=== PATIENT | female | born 1970 | race Caucasian/White ===

== ENCOUNTER 2020-02-15 11:16 | Emergency (ER) | payer SELFPAY ==
--- NOTE | 2020-02-15 12:15 | EDPHYS ---
Physician Documentation [facility] Name: Ladonna Burrows Age: 50 yrs Sex: Female : 1970 Arrival Date: 02/15/2020 Time: 11:18 Bed 13 Private MD: ED Physician Jose Salas HPI: 02/14 12:08 This 50 yrs old Female presents to ER via Ambulatory with complaints of payam Laceration to Finger. 12:08 The patient or guardian reports a laceration, 1.5 cm(s). The complaints affect the PIP payam of right index finger. Context: The problem was sustained at home, resulted from laceration. Onset: The symptoms/episode began/occurred just prior to arrival. Modifying factors: The symptoms are alleviated by nothing, the symptoms are aggravated by nothing. Associated signs and symptoms: The patient has no apparent associated signs or symptoms. Severity of symptoms: At their worst the symptoms were mild, in the emergency department the symptoms are unchanged. The patient has not experienced similar symptoms in the past. 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 - Social history:: Smoking status: . - Family history:: not pertinent. ROS: 12:08 Constitutional: Negative for fever, chills, and weight loss, Eyes: Negative for injury, payam pain, redness, and discharge, ENT: Negative for injury, pain, and discharge, Neck: Negative for injury, pain, and swelling, Cardiovascular: Negative for chest pain, palpitations, and edema, Respiratory: Negative for shortness of breath, cough, wheezing, and pleuritic chest pain, Abdomen/GI: Negative for abdominal pain, nausea, vomiting, diarrhea, and constipation, Back: Negative for injury and pain, : Negative for injury, bleeding, discharge, and swelling, Skin: Negative for injury, rash, and discoloration, Neuro: Negative for headache, weakness, numbness, tingling, and seizure, Psych: Negative for depression, anxiety, suicide ideation, homicidal ideation, and hallucinations, Allergy/Immunology: Negative for hives, rash, and allergies, Endocrine: Negative for neck swelling, polydipsia, polyuria, polyphagia, and marked weight changes. 12:08 MS/extremity: Positive for laceration, tenderness, of the dorsal aspect of middle phalanx of right index finger. Exam: 12:08 Constitutional: This is a well developed, well nourished patient who is awake, alert, payam and in no acute distress. Head/Face: Normocephalic, atraumatic. Eyes: Pupils equal round and reactive to light, extra-ocular motions intact. Lids and lashes normal. Conjunctiva and sclera are non-icteric and not injected. Cornea within normal limits. Periorbital areas with no swelling, redness, or edema. ENT: Nares patent. No nasal discharge, no septal abnormalities noted. Tympanic membranes are normal and external auditory canals are clear. Oropharynx with no redness, swelling, or masses, exudates, or evidence of obstruction, uvula midline. Mucous membranes moist. Neck: Trachea midline, no thyromegaly or masses palpated, and no cervical lymphadenopathy. Supple, full range of motion without nuchal rigidity, or vertebral point tenderness. No Meningismus. Chest/axilla: Normal chest wall appearance and motion. Nontender with no deformity. No lesions are appreciated. Cardiovascular: Regular rate and rhythm with a normal S1 and S2. No gallops, murmurs, or rubs. Normal PMI, no JVD. No pulse deficits. Respiratory: Lungs have equal breath sounds bilaterally, clear to auscultation and percussion. No rales, rhonchi or wheezes noted. No increased work of breathing, no retractions or nasal flaring. Abdomen/GI: Soft, non-tender, with normal bowel sounds. No distension or tympany. No guarding or rebound. No evidence of tenderness throughout. Back: No spinal tenderness. No costovertebral tenderness. Full range of motion. Skin: Warm, dry with normal turgor. Normal color with no rashes, no lesions, and no evidence of cellulitis. Neuro: Awake and alert, GCS 15, oriented to person, place, time, and situation. Cranial nerves II-XII grossly intact. Motor strength 5/5 in all extremities. Sensory grossly intact. Cerebellar exam normal. Normal gait. Psych: Awake, alert, with orientation to person, place and time. Behavior, mood, and affect are within normal limits. 12:08 Musculoskeletal/extremity: ROM: intact in all extremities, full active range of motion, full passive range of motion, Circulation is intact in all extremities. the dorsal aspect of middle phalanx of right index finger Compartment Syndrome exam of affected extremity: is normal. DVT Exam: no swelling, negative Homans' sign noted on exam, no appreciated bluish discoloration, no erythema, no increased warmth, pain, tenderness. Vital Signs: 11:27 BP 98 / 80; Pulse 87; Resp 16; Temp 97.6; Pulse Ox 97% ; Weight 81.65 kg; Height 5 ft. iw 1 in. (154.94 cm); Pain 7/10; 11:27 Body Mass Index 34.01 (81.65 kg, 154.94 cm) iw Laceration: 12:12 Wound Repair of 1.5cm ( 0.6in ) subcutaneous laceration to dorsal aspect of middle payam phalanx of right index finger. Irregularly shaped.. Skin/tissue flap noted.. Distal neuro/vascular/tendon intact. Anesthesia: Local anesthetic administered with 3 mls of 1% lidocaine w/ Epi. Wound prep: Moderate cleansing by me. Skin closed with 3 5-0 Prolene using interrupted sutures and sterile technique. Dressed with Neosporin. Patient tolerated well. MDM: 11:28 Patient medically screened. [facility] 12:11 Differential diagnosis: open fracture, contusion. Data reviewed: vital signs, nurses payam notes. Data interpreted: lapidarist: rate is 87 beats/min, rhythm is regular, Pulse oximetry: on room air is 97 %. Counseling: I had a detailed discussion with the patient and/or guardian regarding: the historical points, exam findings, and any diagnostic results supporting the discharge/admit diagnosis. 02/14 12:07 Order name: Prolene, Sutures; Complete Time: 12:34 [facility] 02/14 12:07 Order name: Dressing - Wound; Complete Time: 12:34 [facility] 02/14 12:07 Order name: Gloves, Sterile; Complete Time: 12:34 [facility] 02/14 12:07 Order name: Setup Suture Tray; Complete Time: 12:35 payam Administered Medications: 12:50 Drug: KeFLEX 500 mg Route: PO; ae4 13:02 Follow up: Response: No adverse reaction ae4 13:00 Drug: Lidocaine-Epinephrine -1%: (1:100,000) 5 ml {Note: Administered by Dr. Salas ae4 to affected area..} Volume: 20 ml; Route: Infiltration; 13:00 Drug: Tetanus-Diphtheria Toxoid Adult 0.5 ml {Java Sybase Developer: marker.to. Exp: ae4 06/28/2021. Lot #: [id number]. } Route: IM; Site: right deltoid; 13:02 Follow up: Response: No adverse reaction ae4 Disposition: 02/15/20 12:14 Discharged to Home. Impression: Laceration without foreign body of right hand - index finger. - Condition is Stable. - Discharge Instructions: Laceration Care, Adult, Laceration Care, Adult, Rald-bi-Higk. - Prescriptions for Keflex 500 mg Oral Capsule - take 1 capsule by ORAL route every 6 hours for 7 days; 28 capsule. - Medication Reconciliation Form, Thank You Letter, Antibiotic Education, Prescription Opioid Use form. - Follow up: Private Physician; When: 1 week; Reason: Recheck today's complaints, Continuance of care, Re-evaluation by your physician. - Problem is new. - Symptoms have improved. Signatures: Jose Salas MD MD cha Williams, Irene, MAURA RN Shekhar Mane RN RN ae4 Corrections: (The following items were deleted from the chart) 11:29 11:28 PSHx: None; [facility] 13:09 12:14 02/15/2020 12:14 Discharged to Home. Impression: Laceration without foreign body ae4 of right hand - index finger. Condition is Stable. Forms are Medication Reconciliation Form, Thank You Letter, Antibiotic Education, Prescription Opioid Use. Follow up: Private Physician; When: 1 week; Reason: Recheck today's complaints, Continuance of care, Re-evaluation by your physician. Problem is new. Symptoms have improved. payam
--- NOTE | 2020-02-15 12:15 | ER ---
Nurse's Notes [facility] Name: Ladonna Burrows Age: 50 yrs Sex: Female : 1970 Arrival Date: 02/15/2020 Time: 11:18 Bed 13 Private MD: Diagnosis: Laceration without foreign body of right hand-index finger Presentation: 02/14 11:27 Chief complaint: Patient states: washing dishes this morning, cut right her index iw finger on broken wine glass. Coronavirus screen: At this time, the client does not indicate any symptoms associated with coronavirus-19. Ebola Screen: Patient negative for fever greater than or equal to 101.5 degrees Fahrenheit, and additional compatible Ebola Virus Disease symptoms Patient denies exposure to infectious person. Patient denies travel to an Ebola-affected area in the 21 days before illness onset. No symptoms or risks identified at this time. Initial Sepsis Screen: Does the patient meet any 2 criteria? No. Patient's initial sepsis screen is negative. Does the patient have a suspected source of infection? No. Patient's initial sepsis screen is negative. Risk Assessment: Do you want to hurt yourself or someone else? Patient reports no desire to harm self or others. 11:27 Method Of Arrival: Ambulatory iw 11:27 Acuity: RAJAT 4 iw 13:09 Onset of symptoms was February 15, 2020 at 11:00. ae4 Triage Assessment: 13:06 General: Appears in no apparent distress. Behavior is calm, cooperative. Pain: ae4 Complains of pain in dorsal aspect of middle phalanx of left ring finger and dorsal aspect of proximal phalanx of left ring finger. EENT: No signs and/or symptoms were reported regarding the EENT system. Neuro: Level of Consciousness is awake, alert, obeys commands, Oriented to person, place, time, situation, Appropriate for age. Cardiovascular: Heart tones S1 S2 present. Respiratory: Airway is patent. GI: No signs and/or symptoms were reported involving the gastrointestinal system. : No signs and/or symptoms were reported regarding the genitourinary system. Derm: Wound noted dorsal aspect of distal phalanx of left ring finger, dorsal aspect of middle phalanx of left ring finger and dorsal aspect of proximal phalanx of left ring finger. Musculoskeletal: No signs and/or symptoms reported regarding the musculoskeletal system. 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 - Social history:: Smoking status: . - Family history:: not pertinent. Screenin:05 Abuse screen: Denies threats or abuse. Nutritional screening: No deficits noted. ae4 Tuberculosis screening: No symptoms or risk factors identified. Fall Risk None identified. Vital Signs: 11:27 BP 98 / 80; Pulse 87; Resp 16; Temp 97.6; Pulse Ox 97% ; Weight 81.65 kg; Height 5 ft. iw 1 in. (154.94 cm); Pain 7/10; 11:27 Body Mass Index 34.01 (81.65 kg, 154.94 cm) iw ED Course: 11:18 Patient arrived in ED. ag5 11:28 Jose Salas MD is Attending Physician. payam 11:28 Triage completed. iw 11:29 Arm band placed on. iw 12:32 Shekhar Mane, MAURA is Primary Nurse. ae4 13:07 Patient has correct armband on for positive identification. Bed in low position. Pulse ae4 ox on. NIBP on. 13:07 Assist provider with laceration repair on left hand Set up tray. Performed by Jose Salas MD Dressed with band aid, Neosporin, Patient tolerated well. 13:08 Patient did not have IV access during this emergency room visit. ae4 Administered Medications: 12:50 Drug: KeFLEX 500 mg Route: PO; ae4 13:02 Follow up: Response: No adverse reaction ae4 13:00 Drug: Lidocaine-Epinephrine -1%: (1:100,000) 5 ml {Note: Administered by Dr. Josue ngo to affected area..} Volume: 20 ml; Route: Infiltration; 13:00 Drug: Tetanus-Diphtheria Toxoid Adult 0.5 ml {Barrel Bung Remover And Dumper: [employer]. Exp: ae4 06/28/2021. Lot #: [id number]. } Route: IM; Site: right deltoid; 13:02 Follow up: Response: No adverse reaction ae4 Outcome: 12:14 Discharge ordered by . payam 13:07 Discharged to home ambulatory, with significant other. ae4 13:07 Condition: stable 13:07 Discharge instructions given to patient, Instructed on discharge instructions, follow up and referral plans. medication usage, Demonstrated understanding of instructions, Prescriptions given X 1. 13:09 Patient left the ED. ae4 Signatures: Jose Salas MD MD cha Williams, Irene, RN RN Cristiane Gallardo ag5 Shekhar Mane, MAURA RN ae4 Corrections: (The following items were deleted from the chart) 11:29 11:28 PSHx: None; iw iw 11:35 11:27 Pulse 87bpm; Resp 16bpm; Pulse Ox 97%; 81.65 kg; Height 5 ft. 1 in.; BMI: 34.0; iw Pain 10/24; iw
[2020-02-15] MEDS ORDERED: LIDOCAINE 1% W/EPI 1:100,000 MDV 20 ML VIAL ONE (12:47)
[2020-02-15] MEDS ORDERED: TETANUS & DIPHTHERIA TOX,ADULT 0.5 ML VIAL ONE (13:01)
[2020-02-15] MEDS ORDERED: CEPHALEXIN 250 MG CAP ONE (13:03)
[2020-02-15 13:21] VITALS: BP 98/80; TEMP 97.6; O2SAT 97
== END 2020-02-15 13:09 | disposition home or self-care (01) ==
LOC: ER 11:16
PROC: 0JQJ0ZZ Repair Right Hand Subcutaneous Tissue and Fascia, Open Approach (ICD-10-PCS; principal; 2020-02-15)
DX: S61.210A Laceration without foreign body of right index finger without damage to nail, initial encounter (principal); W25.XXXA Contact with sharp glass, initial encounter; Y93.G1 Activity, food preparation and clean up; Y92.000 Kitchen of unspecified non-institutional (private) residence as the place of occurrence of the external cause; Z23 Encounter for immunization
CPT/HCPCS: 90471; 90714; 99284